=== PATIENT | female | born 1945 | race Hispanic/Latino ===

== ENCOUNTER → 2018-03-29 | Day surgery (SDC) | payer BC, MEDICARE ==
[2018-03-28 10:58] LABS: BASOPHILS # (AUTO) 0.1 (0.0-0.1); BASOPHILS % 0.8 % (0.0-1.0); EOSINOPHILS # (AUTO) 0.2 (0.0-0.4); EOSINOPHILS % 2.9 % (0.0-6.0); HEMATOCRIT 37.4 % (34.2-44.1); HEMOGLOBIN 12.7 g/dL (12.0-16.0); LYMPHOCYTES % 30.6 % (18.0-39.1); MEAN CORPUSCULAR HEMOGLOBIN 28.9 pg (28-32); MEAN CORPUSCULAR VOLUME 85.2 fL (81-99); MONOCYTES # (AUTO) 0.6 (0.2-0.8); NEUTROPHILS # (AUTO) 3.7 (2.1-6.9); NEUTROPHILS % 56.5 % (38.7-80.0); PLATELET COUNT 265 x10e3/uL (140-360); RED BLOOD COUNT 4.39 x10e6/uL (3.6-5.1); RED CELL DISTRIBUTION WIDTH 12.3 % (11.7-14.4)
[~2018-03-29] MED LIST: ASPIRIN81 MG; CARVEDILOL12.5 MG PO; EPHEDRINE SULFATE INJ 50 MG/10 ML SYR ONE; FENTANYL CITRATE/PF 100MCG/2 ML INJ ONE; FUROSEMIDE40 MG PO; ISOSORBIDE MONO30 MG PO; MIDAZOLAM HCL 2 MG/2 ML VIAL ONE; NIFEDIPINE10 MG PO; PROPOFOL IV EMULSION 10 MG/ML 50 ML VIAL ONE; TORSEMIDE10 MG; VENTOLIN HFA18 GM
--- OUTSIDE RECORDS SUMMARY | 2018-03-29 06:16 | XMS REPORT | Clinical Summary ---
Author Author [facility] Organization [facility] Address Unknown Phone Unavailable Care Team Providers Care Compensation And Benefits Analyst Name Role Phone Otis Pederson PCP Unavailable Allergies Active Allergy Reactions Severity Noted Date Comments Penicillin Rash 11/22/2017 Current Medications Prescription Sig. Disp. Refills Start End Date Status Date carvedilol (COREG) 12.5 Take 12.5 mg by mouth 2 Active mg tablet times daily (with meals). ACETAMINOPHEN/DIPHENHYDRA Take by mouth at bedtime Active MINE (TYLENOL PM OR) nightly. pantoprazole (PROTONIX) Take 40 mg by mouth Active 40 mg delayed release daily. tablet furosemide (LASIX) 20 mg Take 20 mg by mouth 2 Active tablet times daily. BABY ASPIRIN OR Take by mouth daily. Active isosorbide mononitrate Take 30 mg by mouth Active (IMDUR) 30 mg extended daily. release tablet NIFEdipine (PROCARDIA XL) Take 60 mg by mouth Active 60 mg 24 hr extended daily. release tabletIndications: Essential hypertension, benign albuterol (PROAIR HFA) 90 Inhale 2 Puffs by mouth 4 1 Inhaler 0 Active mcg/actuation times daily as needed for 18 inhalerIndications: Wheezing or Shortness of Chronic bronchitis, Breath. unspecified chronic bronchitis type clotrimazole (LOTRIMIN) 1 Apply to affected area 2 30 g 0 01/13/20 Active % topical times daily. 18 creamIndications: Tinea manuum ALBUTEROL SULFATE (PROAIR Inhale by mouth 4 times 01/06/20 Discontin HFA IN) daily. 18 ued benzonatate (TESSALON Take 1 capsule by mouth 3 20 capsule 0 11/22/19 11/29/19 PERLES) 100 mg times daily as needed for 18 18 capsuleIndications: up to 7 days for Cough. Postviral syndrome atorvastatin (LIPITOR) 10 Take 1 tablet by mouth at 30 tablet 2 02/22/20 mg tabletIndications: bedtime nightly for 90 18 18 Hyperlipidemia, days. unspecified hyperlipidemia type Active Problems Problem Noted Date Diabetes mellitus Encounters Date Type Specialty Care Team Description 01/29/2018 Telephone [facility] Andrea Loaiza, Resident Results 01/12/2018 Office Visit [facility] Otis Pederson, Tinea manuum (Primary Dx); Need for pneumococcal vaccination 01/05/2018 Office Visit [facility] Lance Novoa MD Essential hypertension, Otis Pederson, benign (Primary Dx); Diverticulosis of intestine with bleeding, unspecified intestinal tract location; Chronic bronchitis, unspecified chronic bronchitis type; DARREN (obstructive sleep apnea); Colon cancer screening 12/27/2017 Office Visit [facility] Lance Novoa MD Acute gastrointestinal Otis Pederson Resident bleeding (Primary Dx); Need for Tdap vaccination; Screening for malignant neoplasm of breast 12/10/2017 Pharmacy Visit 11/23/2017 Telephone [facility] Otis Pederson, Results 11/22/2017 Office Visit [facility] Otis Pederson, Postviral syndrome (Primary Dx); Class 3 obesity with body mass index (BMI) of 40.0 to 44.9 in adult, unspecified obesity type, unspecified whether serious comorbidity present; Healthcare maintenance; Need for influenza vaccination after 03/28/2017 Immunizations Name Dates Previously Given Next Due Influenza, Injectable, 11/22/2017 Quadrivalent, Preservative Free PCV 13 (Pnuemococcal 01/12/2018 Conjugated 13 Valent) TDap (Tetanus Toxoid, 12/27/2017 Reduced Diphtheria Toxoid And Acellular Pertussis, Absorbed) Family History Medical History Relation Name Comments Brain cancer Brother Diabetes Brother Hypertension Brother Prostate cancer Father Hypertension Mother Kidney disease Mother Kidney cancer Sister Relation Name Status Comments Brother Father Mother Sister Social History Tobacco Use Types Packs/Day Years Used Date Current Every Day Smoker 0.5 25 Smokeless Tobacco: Never Used Alcohol Use Drinks/Week oz/Week Comments No Sex Assigned at Date Recorded Not on file Last Filed Vital Signs Vital Sign Reading Time Taken Blood Pressure 168/70 01/12/2018 8:22 AM CDT Pulse 60 01/12/2018 8:07 AM CDT Temperature 37 C (98.6 F) 01/12/2018 8:07 AM CDT Respiratory Rate 18 01/12/2018 8:07 AM CDT Oxygen Saturation 97% 01/05/2018 3:12 PM CDT Inhaled Oxygen - - Concentration Weight 91.4 kg (201 lb 9.6 oz) 01/12/2018 8:07 AM CDT Height 148.6 cm (4' 10.5") 01/12/2018 8:07 AM CDT Body Mass Index 41.42 01/12/2018 8:07 AM CDT Plan of Treatment Health Maintenance Due Date Last Done Comments DM MICROALBUMIN URINE 1963 SCRN (YEARLY) DM RETINAL EXAM (YEARLY) 1963 COLORECTAL CANCER SCRN 1994 ANNUAL (FIT/FOBT) AGE 50 TO 75 IMM PNEUMOCOCCAL AGE 65 2009 AND UP DM FOOT EXAM (YEARLY) 11/22/2018 11/22/2017 (Previously completed - External) DM HGBA1C (YEARLY) 11/22/2018 11/22/2017 (Previously completed - External) BREAST CANCER SCRN 01/27/2019 01/27/2018 (YEARLY) Results * MAMMOGRAM BILAT SCREEN DIGITAL (01/27/2018) Specimen Performing Laboratory [facility] * CARDIOVASCULAR RISK ASSESSMENT (11/22/2017 2:29 PM) Component Value Ref Range Interpretation NoteComment: Supplemental report is available. Specimen Performing Laboratory [facility] [address] [address] Narrative Performed at:[facility] [address] [place], [place] [id number] Deckhand Clam Dredge: Bhanu Mistry PhD, Phone:[phone] * HEMOGLOBIN A1C (11/22/2017 2:29 PM) Component Value Ref Range Hemoglobin A1c 5.6 4.8 - 5.6 % Comment: Pre-diabetes: 5.7 - 6.4 Diabetes: >6.4 Glycemic control for adults with diabetes: <7.0 Specimen Performing Laboratory Blood [facility] [address] [address] Narrative Performed at:[address] [place] [address], [id number] De[employer] Dredge: Mic Baugh MD, Phone:[phone] * LIPID PANEL (11/22/2017 2:29 PM) Component Value Ref Range Cholestrol, Total 209 (H) 100 - 199 mg/dL Triglyceride 385 (H) 0 - 149 mg/dL HDL 31 (L) >39 mg/dL VLDL Cholestrol Calc 77 (H) 5 - 40 mg/dL LDL Cholestrol Calc 101 (H) 0 - 99 mg/dL Specimen Performing Laboratory [facility] [address] [address] Narrative Performed at:[id number] [employer]: Mic Baugh MD, Phone:[phone] after 03/28/2017
--- OUTSIDE RECORDS SUMMARY | 2018-03-29 06:17 | XMS REPORT ---
Author Author [facility] Address Unknown Phone Unavailable Care Team Providers Care Painter Drum Name Role Phone Unavailable Unavailable Problems This patient has no known problems. Allergies, Adverse Reactions, Alerts This patient has no known allergies or adverse reactions. Medications This patient has no known medications. Encounters Start Date/Time End Date/Time Encounter Type Admission Type Attending [facility] Care Department Encounter ID 2018-03-07 00:00:00 2018-03-07 00:00:00 Outpatient [facility] [id number] 2018-01-23 12:01:53 2018-01-23 12:01:53 Outpatient [facility] [id number] 2018-01-12 08:02:48 2018-01-12 08:02:48 Outpatient [facility] [id number] 2018-01-05 14:59:22 2018-01-05 14:59:22 Outpatient [facility] [id number] 2018-01-05 00:00:00 2018-01-05 00:00:00 Outpatient [facility] [id number] 2017-12-27 13:48:48 2017-12-27 13:48:48 Outpatient [facility] [id number]
--- OUTSIDE RECORDS SUMMARY | 2018-03-29 06:17 | XMS REPORT | Clinical Summary ---
Author Author [facility] Organization [facility] Address Unknown Phone Unavailable Care Team Providers Care Stenotypist Name Role Phone Rupinder Mcmahan MD PCP Allergies Active Allergy Reactions Severity Noted Date Comments Amlodipine Shortness Of Breath High 01/14/2016 Atorvastatin Shortness Of Breath High 01/14/2016 Clonidine Other (See Comments) 01/14/2016 Unsure of reaction Penicillin Hives 12/28/2017 Sulfa (Sulfonamide Hives 01/14/2016 Antibiotics) Current Medications Prescription Sig. Disp. Refills Start End Date Status Date albuterol (PROAIR HFA) 90 Inhale 2 puff(s) every 4 Active mcg/actuation inhaler hours by inhalation route as needed. carvedilol (COREG) 12.5 Take 6.25 mg by mouth 2 Active MG tablet (two) times a day with meals. fluticasone-salmeterol Inhale 1 puff 2 (two) Active (ADVAIR) 250-50 mcg/dose times a day as needed. DISKUS hydrALAZINE (APRESOLINE) Take 25 mg by mouth Active 25 MG tablet daily. isosorbide mononitrate Take 30 mg by mouth Active (IMDUR) 30 MG 24 hr daily. tablet rosuvastatin (CRESTOR) 20 Take 20 mg by mouth Active MG tablet nightly. torsemide (DEMADEX) 20 MG Take 20 mg by mouth 2 Active tablet (two) times a day. diphenhydramine-acetamino Take 2 tablets by mouth Active phen (TYLENOL PM EXTRA nightly. STRENGTH) 25-500 mg tablet aspirin (ECOTRIN) 81 MG Take 81 mg by mouth Active enteric coated tablet daily. pantoprazole (PROTONIX) Take 40 mg by mouth Active 40 MG EC tablet daily. aspirin (ECOTRIN) 81 MG Take 1 tablet(s) every 12/29/19 Discontin enteric coated tablet day by oral route. 18 ued fluticasone-salmeterol Inhale 1 puff(s) twice a 12/29/19 Discontin (ADVAIR) 250-50 mcg/dose day by inhalation route. 18 ued DISKUS carvedilol (COREG) 12.5 TK 0.5 T PO BID 12/29/19 Discontin MG tablet 18 ued rosuvastatin (CRESTOR) 20 TK 1 T PO QD 12/29/19 Discontin MG tablet 18 ued hydrALAZINE (APRESOLINE) TAKE 1 TABLET BY MOUTH 12/29/19 Discontin 25 MG tablet ONCE DAILY 18 ued isosorbide mononitrate TK 1 T PO QD 12/29/19 Discontin (IMDUR) 30 MG 24 hr 18 ued tablet pantoprazole (PROTONIX) TK 1 T PO QD 12/29/19 Discontin 40 MG EC tablet 18 ued torsemide (DEMADEX) 20 MG TK 1 T PO BID 12/29/19 Discontin tablet 18 ued zolpidem (AMBIEN) 5 MG TAKE 1 TABLET BY MOUTH AT 12/29/19 Discontin tablet BEDTIME 18 ued sertraline (ZOLOFT) 50 MG TAKE ONE TABLET BY MOUTH 30 tablet 0 12/29/19 Discontin tabletIndications: ONCE DAILY 17 18 ued Depression carvedilol (COREG) 25 MG Take 1 tablet (25 mg 60 tablet 0 12/29/19 01/28/20 tabletIndications: total) by mouth 2 (two) 18 18 Hypertensive urgency times a day for 30 days. NIFEdipine XL (PROCARDIA Take 1 tablet (60 mg 30 tablet 0 12/29/19 01/28/20 XL) 60 MG 24 hr total) by mouth daily for 18 18 tabletIndications: 30 days. Malignant hypertension furosemide (LASIX) 20 mg Take 1 tablet (20 mg 60 tablet 0 12/29/19 12/30/19 Discontin tabletIndications: total) by mouth 2 (two) 18 18 ued Malignant hypertension times a day for 30 days. nystatin (MYCOSTATIN) Apply topically 2 (two) 15 g 0 12/29/19 100,000 unit/gram times a day for 30 days. 18 18 creamIndications: Hypertensive urgency torsemide (DEMADEX) 10 MG Take 1 tablet (10 mg 60 tablet 0 12/31/19 01/30/20 tablet total) by mouth 2 (two) 18 18 times a day for 30 days. Active Problems Problem Noted Date Malignant hypertension 12/27/2017 Hypertensive urgency 12/27/2017 Obstructive sleep apnea syndrome 04/16/2016 Abdominal pain 01/14/2016 Low kidney function 01/14/2016 Depression 01/14/2016 Dyspnea on exertion 01/14/2016 Flank pain 01/14/2016 Knee pain 01/14/2016 Skin lesion 01/14/2016 Contact dermatitis 07/23/2013 Influenza vaccine needed 07/23/2013 Atherosclerosis of renal artery 10/30/2012 Right upper quadrant pain 10/30/2012 Anemia 09/28/2012 Cellulitis 09/28/2012 Follow up 09/28/2012 Cough 07/14/2012 Insomnia 07/14/2012 Atrial fibrillation 06/27/2012 Preop testing 06/27/2012 Disorder of trunk 06/07/2012 Respiratory Finding 06/07/2012 Screening for malignant neoplasm of breast 06/07/2012 Multiple-resistant Staphylococcus aureus infection 10/24/2011 Encounters Date Type Specialty Care Team Description 01/03/2018 Telephone Internal Medicine Rae Bagley 12/27/2017 [facility] General Internal Medicine Carrington Fernando MD Malignant hypertension - Encounter Hector Demarco DO (Primary Dx); 12/29/2017 Hypertensive urgency; Acute renal failure superimposed on stage 3 chronic kidney disease, unspecified acute renal failure type; Rectal bleeding; Weakness generalized; Diverticulosis of both small and large intestine without bleeding 04/26/2017 Refill Internal Medicine Oleg Mcamhan MD Depression 04/18/2017 Refill Internal Medicine Oleg Mcmahan MD after 03/28/2017 Immunizations Name Dates Previously Given Next Due FLUZONE HIGH-DOSE PF 08/06/2015 Influenza Split 07/23/2013 Pneumococcal Conjugate 08/06/2015 13-Valent Pneumococcal 10/24/2010 Polysaccharide Tdap 10/24/2010 Family History Medical History Relation Name Comments Diabetes Brother Heart attack Brother Hypertension Brother Cancer Father Diverticulitis Mother Heart attack Mother Hypertension Mother Kidney disease Mother Cancer Sister Relation Name Status Comments Brother Father PROSTATE CANCER Mother Sister KIDNEY CANCER Social History Tobacco Use Types Packs/Day Years Used Date Current Every Day Smoker Cigarettes 0.1 30 Smokeless Tobacco: Never Used Tobacco Cessation: Counseling Given: No Comments: Previously 30 PPY Alcohol Use Drinks/Week oz/Week Comments No Sex Assigned at Date Recorded Not on file Last Filed Vital Signs Vital Sign Reading Time Taken Blood Pressure 174/72 12/29/2017 5:27 PM INFRASTRUCTURE ADMINISTRATOR Pulse 68 12/29/2017 5:28 PM INFRASTRUCTURE ADMINISTRATOR Temperature 35.6 C (96.1 F) 12/29/2017 5:27 PM INFRASTRUCTURE ADMINISTRATOR Respiratory Rate 18 12/29/2017 5:28 PM INFRASTRUCTURE ADMINISTRATOR Oxygen Saturation 99% 12/29/2017 5:27 PM INFRASTRUCTURE ADMINISTRATOR Inhaled Oxygen - - Concentration Weight 91.6 kg (202 lb) 12/29/2017 11:57 AM INFRASTRUCTURE ADMINISTRATOR Height 149.9 cm (4' 11") 12/29/2017 11:57 AM INFRASTRUCTURE ADMINISTRATOR Body Mass Index 40.8 12/29/2017 11:57 AM INFRASTRUCTURE ADMINISTRATOR Plan of Treatment Health Maintenance Due Date Last Done Comments BREAST CANCER SCREENING 1994 COLON CANCER SCREENING 1994 SHINGRIX VACCINE (#1) 1994 ZOSTER VACCINE 2004 INFLUENZA VACCINE 05/24/2018 11/22/2017, 08/06/2015, 07/23/2013 PNEUMOCOCCAL Completed 10/24/2010 POLYSACCHARIDE VACCINE AGE 65 AND OVER PNEUMOCOCCAL-13 Completed 08/06/2015 Procedures Procedure Name Priority Date/Time Associated Diagnosis Comments CV STRESS TEST NUCLEAR Routine 12/29/2017 Results for this CARDIO 1:25 PM INFRASTRUCTURE ADMINISTRATOR procedure are in the results section. ECHOCARDIOGRAM 2D Routine 12/28/2017 Results for this COMPLETE W MMODE SPECTRAL 11:45 AM INFRASTRUCTURE ADMINISTRATOR procedure are in the COLOR DOPPLER ([id number]) results section. OR CRITICAL CARE, E/M Routine 12/27/2017 Results for this 30-74 MINUTES 10:19 PM INFRASTRUCTURE ADMINISTRATOR procedure are in the results section. after 03/28/2017 Results * CV stress test (12/29/2017 1:25 PM) Component Value Ref Range Resting HR 62 Resting BP 128 Peak MET Achieved 1.0 Protocol Name REGADENO Time in Exercise Phase 00:01:00 Max Systolic BP 140 Max Diastolic BP 63 Max Heart Rate 73 Max Predicted Heart Rate 147 Target HR Formula (220 - Age)*100% Test Indication chest pain Arrhy During Ex ECG Interp Before EX ECG Interp During Ex Ex Summary Comment Overall HR Response to Exercise Overall BP Response To Exercise Reason for Termination Stress Test Impression -Waveform interpreted in report associated with image study. No interpretation is provided as part of this Stress ECG report.-Electronically Signed By Austen Sutherland MD ([id number]), medical editor Cordelia Whittington ([id number]) on 12/29/2017 2:41:21 PM Specimen Performing Laboratory [facility] [address] [place] [id number] * Myocardial perfusion (12/29/2017 1:25 PM) Specimen Performing Laboratory [facility] [address] [place] [address] Narrative Nuclear Cardiology and Cardiac CT [address] [place] [id number] Myocardial Perfusion Imaging Report Stress ECG tracings are available in [employer], [employer] and [employer] properties and services Web All ECG interpretations are included in this report Pat.Name:MORELIA DE LA CRUZ LPat.ID:[id number] St.Date: 12/29/2017Refer.MD:HECTOR DEMARCO DO Exam Time: 12:17:00 PM Study Type:Myocardial Perfusion Imaging Height:51inBSA: 1.67 m2 DOBAge:1945,72Y Sex: FEMALE BP:128/58HR: 62 bpm HCT: 33.1 % Nuclear Tech:Reji Sung [facility], [facility]/ JAVAD Alegre Pat. Stat.:Inpatient Room:[facility] Nuclear Event ID:[id number] Order ID:[id number] Reason for Study:Chest pain, unspecified* History / Clinical:Atrial fibrillation, Congestive heart failure, COPD, Family history CAD, Hyperlipidemia, Hypertension, Obesity, Renal insufficiency/failure, Asthma ROUTINE INHALERS Procedures:Stress only Race:White Risk Factors:Cardiovascular Disease, Hyperlipidemia, Hypertension, Smoker, Peripheral arterial disease, Obesity Clinical Symptoms:Regadenoson Physical Exam:S1, S2 Surgery: K 4.1 (12/29), Troponin negative X 3 (12/28, 12/27, 12/27), BUN/CR 27/1.8 Medications:Aspirin, Coreg, Lasix, Albuterol, Imdur, Procardia, Protonix, Lasix SUMMARY: SCINTIGRAPHIC RESULTS Perfusion Defect Size (% LV) 0 % Total 0 % Ischemia 0 % Scar Left Ventricular Perfusion Results There is normal tracer distribution throughout the myocardium during stress. Gated SPECT Results The post-stress left ventricular ejection fraction is 77 % with normal regional wall motion and left ventricular thickening.Left ventricular end-diastolic volume is 94 ml; end-systolic volume is22 ml. The left ventricle is of normal size at stress.The right ventricle is of normal size with normal wall motion. Conclusion Normal regadenoson Tc-99m tetrofosmin myocardial perfusion study. The left ventricular ejection fraction is normal. Comments Patients with a normal stress myocardial perfusion study have a low (< 1%) annual risk of cardiac or nonfatal myocardial infarction. Study Quality/Artifacts The study quality is good. Comparison to Previous Study The previous study dated 04-15-2012 was also normal with a left ventricular ejection fraction of 73%. STRESS: Baseline Vital Signs:Intervention: Regadenoson 0.4mg /5ml IV over 10 seconds followed by radiotracer injection and 5ml saline flush ECG: Normal Sinus Rhythm HR:62 BP:128/58 Stress Test Results: Target HR: 125 Symptoms and Complications: Arrhythmias: None Terminated: As per Regadenoson protocol Symptoms:Headache Complications: None Conclusions: Normal heart rate response to pharmacological stress, Normal blood pressure response to pharmacological stress Stress ECG Interp: No ischemic ST segment change occurred with stress. Signed 12/29/2017 03:34 PM Austen Sutherland MD Procedure Note Interface, Radiology Results In - 12/29/2017 3:34 PM [facility] Nuclear Cardiology and Cardiac CT [address] [place] [address] Myocardial Perfusion Imaging Report Stress ECG tracings are available in [employer], [employer] and [employer] All ECG interpretations are included in this report Pat.Name: MORELIA DE LA CRUZ Lucio Pat.ID: [id number] St.Date: 12/29/2017 Refer.MD: HECTOR DEMARCO DO Exam Time: 12:17:00 PM Study Type:Myocardial Perfusion Imaging Height: 51in BSA: 1.67 m2 Age: 2 1945,72Y Sex: FEMALE BP: 128/58 HR: 62 bpm HCT: 33.1 % Nuclear Tech:JAVAD Bonilla, [facility]/ JAVAD Alegre Pat. Stat.:Inpatient Room: [facility] Nuclear Event ID:[id number] Order ID: [id number] Reason for Study:Chest pain, unspecified* History / Clinical:Atrial fibrillation, Congestive heart failure, COPD, Family history CAD, Hyperlipidemia, Hypertension, Obesity, Renal insufficiency/failure, Asthma ROUTINE INHALERS Procedures:Stress only Race: White Risk Factors:Cardiovascular Disease, Hyperlipidemia, Hypertension, Smoker, Peripheral arterial disease, Obesity Clinical Symptoms:Regadenoson Physical Exam:S1, S2 Surgery: K 4.1 (12/29), Troponin negative X 3 (12/28, 12/27, 12/27), BUN/CR 27/1.8 Medications:Aspirin, Coreg, Lasix, Albuterol, Imdur, Procardia, Protonix, Lasix SUMMARY: SCINTIGRAPHIC RESULTS Perfusion Defect Size (% LV) 0 % Total 0 % Ischemia 0 % Scar Left Ventricular Perfusion Results There is normal tracer distribution throughout the myocardium during stress. Gated SPECT Results The post-stress left ventricular ejection fraction is 77 % with normal regional wall motion and left ventricular thickening. Left ventricular end-diastolic volume is 94 ml; end-systolic volume is 22 ml. The left ventricle is of normal size at stress. The right ventricle is of normal size with normal wall motion. Conclusion Normal regadenoson Tc-99m tetrofosmin myocardial perfusion study. The left ventricular ejection fraction is normal. Comments Patients with a normal stress myocardial perfusion study have a low (< 1%) annual risk of cardiac or nonfatal myocardial infarction. Study Quality/Artifacts The study quality is good. Comparison to Previous Study The previous study dated 04-15-2012 was also normal with a left ventricular ejection fraction of 73%. STRESS: Baseline Vital Signs: Intervention: Regadenoson 0.4mg/5ml IV over 10 seconds followed by radiotracer injection and 5ml saline flush ECG: Normal Sinus Rhythm HR: 62 BP: 128/58 Stress Test Results: Target HR: 125 Symptoms and Complications: Arrhythmias: None Terminated: As per Regadenoson protocol Symptoms: Headache Complications: None Conclusions: Normal heart rate response to pharmacological stress, Normal blood pressure response to pharmacological stress Stress ECG Interp: No ischemic ST segment change occurred with stress. Signed 12/29/2017 03:34 PM Austen Sutherland MD * CBC with platelet and differential (12/29/2017 4:30 AM) Only the most recent of 3 results within the time period is included. Component Value Ref Range WBC 6.11 4.50 - 11.00 k/uL RBC 3.82 (L) 4.20 - 5.50 m/uL HGB 10.9 (L) 12.0 - 16.0 g/dL HCT 33.1 (L) 37.0 - 47.0 % MCV 86.6 82.0 - 100.0 fL MCH 28.5 27.0 - 34.0 pg MCHC 32.9 31.0 - 37.0 g/dL RDW - SD 37.5 37.0 - 55.0 fL MPV 11.3 8.8 - 13.2 fL Platelet count 202 150 - 400 k/uL Nucleated RBC 0.00 /100 WBC Neutrophils 50.9 39.0 - 69.0 % Lymphocytes 34.7 25.0 - 45.0 % Monocytes 9.8 0.0 - 10.0 % Eosinophils 3.9 0.0 - 5.0 % Basophils 0.5 0.0 - 1.0 % Immature granulocytes 0.2Comment: "Immature granulocytes" 0.0 - 1.0 % (promyelocytes, myelocytes, metamyelocytes) Specimen Performing Laboratory Blood [facility] DEPARTMENT OF PATHOLOGY AND GENOMIC MEDICINE [address] [place] [address] * Estimated GFR (12/29/2017 4:00 AM) Only the most recent of 3 results within the time period is included. Component Value Ref Range GFR Non Af Amer 28 (A) mL/min/1.73 m2 GFR Af Amer 33 (A) mL/min/1.73 m2 Comment: Chronic kidney disease: <60 mL/min/1.73m2 Kidney failure: <15 mL/min/1.73m2 The estimated GFR is calculated from the IDMS-traceable Modification of Diet in Renal Disease Equation. The accuracy of the calculation is poor when the creatinine is normal. Calculated values >90 mL/min/1.73m2 are not reported. This equation has not been validated in children (<18 years), women, the elderly (>70 years), or ethnic groups other than Caucasians and Americans. Specimen Performing Laboratory Plasma specimen [facility] DEPARTMENT OF PATHOLOGY AND [facility] MEDICINE [address] [place], [place] [id number] * Basic metabolic panel (12/29/2017 4:00 AM) Only the most recent of 2 results within the time period is included. Component Value Ref Range Sodium 138 135 - 148 mEq/L Potassium 4.1 3.5 - 5.0 mEq/L Chloride 101 98 - 112 mEq/L CO2 24 24 - 31 mEq/L Anion gap 13 7 - 15 mEq/L Comment: Starting from January , anion gap calculation no longer incorporates potassium. Please note the change. BUN 27 (H) 8 - 23 mg/dL Creatinine 1.8 (H) 0.5 - 0.9 mg/dL Glucose 99 65 - 99 mg/dL Calcium 9.5 8.8 - 10.2 mg/dL Specimen Performing Laboratory Plasma specimen [facility] DEPARTMENT OF PATHOLOGY AND [facility] MEDIC[facility] [address] [place] [id number] * US Renal Doppler (12/28/2017 6:05 PM) Specimen [facility] [address] [place] [address] Narrative EXAMINATION:US RENAL DOPPLER CLINICAL HISTORY:Uncontrolled Hypertension TECHNIQUE: Examination includes a full duplex Doppler scan of the renal vessels (real-time B mode grayscale, Doppler spectral analysis, and Doppler color flow imaging). COMPARISON:None. Impression: 1. Right kidney is small with decrease in cortical thickness and diffuse increase in cortical echogenicity. Cortical thickness and echogenicity on the left is more normal. 2.Diffuse decrease in the percentage of diastolic flow on the right ( resistive indices on the right range from 0.79-0.81) suggesting small vessel disease. Resistive indices on the left are normal (0.69-0.74). 3.There is also relative decrease in systolic acceleration on the right as compared to the left. 4.Renal vein flow is noted on each side. [id number] Procedure Note Interface, Radiology Results Incoming - 12/28/2017 7:54 PM INFRASTRUCTURE ADMINISTRATOR EXAMINATION: US RENAL DOPPLER CLINICAL HISTORY: Uncontrolled Hypertension TECHNIQUE: Examination includes a full duplex Doppler scan of the renal vessels (real-time B mode grayscale, Doppler spectral analysis, and Doppler color flow imaging). COMPARISON: None. Impression: 1. Right kidney is small with decrease in cortical thickness and diffuse increase in cortical echogenicity. Cortical thickness and echogenicity on the left is more normal. 2. Diffuse decrease in the percentage of diastolic flow on the right ( resistive indices on the right range from 0.79-0.81) suggesting small vessel disease. Resistive indices on the left are normal (0.69-0.74). 3. There is also relative decrease in systolic acceleration on the right as compared to the left. 4. Renal vein flow is noted on each side. [id number] * Echocardiogram complete w contrast and 3D if needed (12/28/2017 11:45 AM) Specimen Performing Laboratory [facility] [address] [place] [address] Narrative Echocardiography Report [address] [place] [address] Pat.Name:MORELIA DE LA CRUZ [facility].ID:[id number] .Date: 12/28/2017Refer.MD:HECTOR DEMARCO MD Exam Time: 10:44:00 AM Study Type:Routine Echo Height:59inWeight:197lb BSA: 1.83 m2 DOBAge:1945,72Y Sex: FEMALEBP: 140/65 HR:60 bpmSonogrphr: PAULINE Newby Pat. Stat.:Inpatient Room:ED 4 Study Status:Final Echo Event ID:[id number] Order ID:[id number] Reason for Study:Heart Failure History / Clinical:COPD, Chest Pain, Dizziness, Edema, Hyperlipidemia, Hypertension, Shortness of Breath Procedures:2D Echo, Colorflow Doppler, Portable Race:C SUMMARY: Severe mitral annular calcification. Unable to assess diastolic function. FINDINGS: LV: LV size is normal. LV EF is hyperdynamic. Overall wall motionis hyperdynamic. Estimated EF is >70%. RV: RV size is normal. RV systolic function is normal. LA: LA volume is severely enlarged. RA: RA size is normal. AO: Aortic root diameter is normal. YURIDIA: No pericardial effusion. AV: No structural AV abnormalities noted. Mild to moderate aorticregurgitation. MV: Moderate calcification of mitral leaflets. Severe mitral annularcalcification. PV: No structural PV abnormalities noted. TV: No structural TV abnormalities noted. A trace of tricuspid regurgitation Arellano: LV filling pressure is normal. Unable to assess diastolic function. Other:Estimated PA systolic pressure is 28 mmHg, assuming a mean RAPof 5 mmHg. MEASUREMENTS: 2D Parasternal [place] LVOT 1.9 cmLA Ds 4.8 cm LVIDd4.7 cmIndex 2.5 cm/m Ao An2 cm LVIDs2.5 cmAo Rtd 2.6 cm Index1.4 cm/m LV%fs 46 % LV Mass 141.2 g(87-129) IVSd 0.7 cmLVM Index 77.1 g/m2 LVPWd1.1 cmRWT 0.5 LA Sng Plane LA Area 24.7 cm2(8.8-23.4) LA Vol 91 ml Index49.7 ml/m LA LngAx 5.6 cm Signed 12/28/2017 04:21 PM Marc Gibbs M.D. Procedure Note Interface, Radiology Results In - 12/28/2017 4:21 PM INFRASTRUCTURE ADMINISTRATOR Echocardiography Report [address] [place] [address] Pat.Name: MORELIA DE LA CRUZ Pat.ID: [id number] .Date: 12/28/2017 Refer.MD: HECTOR DEMARCO MD Exam Time: 10:44:00 AM Study Type:Routine Echo Height: 59in Weight: 197lb BSA: 1.83 m2 Age: 2 1945,72Y Sex: FEMALE BP: 140/65 HR: 60 bpm Sonogrphr: PAULINE Newby Pat. Stat.:Inpatient Room: ED 4 Study Status:Final Echo Event ID:[id number] Order ID: [id number] Reason for Study:Heart Failure History / Clinical:COPD, Chest Pain, Dizziness, Edema, Hyperlipidemia, Hypertension, Shortness of Breath Procedures:2D Echo, Colorflow Doppler, Portable Race: C SUMMARY: Severe mitral annular calcification. Unable to assess diastolic function. FINDINGS: LV: LV size is normal. LV EF is hyperdynamic. Overall wall motion is hyperdynamic. Estimated EF is >70%. RV: RV size is normal. RV systolic function is normal. LA: LA volume is severely enlarged. RA: RA size is normal. AO: Aortic root diameter is normal. YURIDIA: No pericardial effusion. AV: No structural AV abnormalities noted. Mild to moderate aortic regurgitation. MV: Moderate calcification of mitral leaflets. Severe mitral annular calcification. PV: No structural PV abnormalities noted. TV: No structural TV abnormalities noted. A trace of tricuspid regurgitation Arellano: LV filling pressure is normal. Unable to assess diastolic function. Other: Estimated PA systolic pressure is 28 mmHg, assuming a mean RAP of 5 mmHg. MEASUREMENTS: 2D Parasternal [place] LVOT 1.9 cm LA Ds 4.8 cm LVIDd 4.7 cm Index 2.5 cm/m Ao An 2 cm LVIDs 2.5 cm Ao Rtd 2.6 cm Index 1.4 cm/m LV%fs 46 % LV Mass 141.2 g (87-129) IVSd 0.7 cm LVM Index 77.1 g/m2 LVPWd 1.1 cm RWT 0.5 LA Sng Plane LA Area 24.7 cm2 (8.8-23.4) LA Vol 91 ml Index 49.7 ml/m LA LngAx 5.6 cm Signed 12/28/2017 04:21 PM Marc Gibbs M.D. * Urinalysis screen and microscopy, with reflex to culture (12/28/2017 6:25 AM) Component Value Ref Range Specimen site Clean catch Color, UA Yellow Appearance, UA Hazy Specific gravity, UA 1.015 1.001 - 1.035 pH, UA 6.0 5.0 - 8.5 Protein, UA Negative Negative Glucose, UA Negative Negative Ketones, UA Negative Negative Bilirubin, UA Negative Negative Blood, UA Negative Negative Nitrite, UA Negative Negative Urobilinogen, UA <2.0 <2.0 Leukocyte esterase, UA Large (A) Negative Epithelial cells, UA 1 /HPF Round epithelial cells, <1 0 - 1 /HPF UA WBC, UA 59 (H) 0 - 4 /HPF RBC, UA 2 0 - 2 /HPF Bacteria, UA Few None seen Yeast, UA None seen Yeast with pseudohyphae, None seen UA Specimen Performing Laboratory Urine [facility] DEPARTMENT OF PATHOLOGY AND GENOMIC MEDICINE [address] [place] [id number] * Total iron binding capacity (12/28/2017 6:25 AM) Component Value Ref Range Iron level 53 37 - 145 ug/dL Iron binding capacity 251 200 - 400 ug/dL % Saturation 21.1 15.0 - 38.0 % Specimen Performing Laboratory Plasma specimen [facility] DEPARTMENT OF PATHOLOGY AND [facility] MEDICINE [address] [place] [address] * Troponin (12/28/2017 6:25 AM) Only the most recent of 3 results within the time period is included. Component Value Ref Range Troponin <0.30 0.00 - 0.30 ng/mL Comment: 0.30 - 1.49 ng/ml May indicate increased risk of acute coronary syndrome. >=1.5 ng/ml Consistent with acute myocardial infarction. The diagnostic value of a single normal or non-diagnostic result is questionable. Serial samples at 2-6 hour intervals are required to rule out acute myocardial injury. Specimen Performing Laboratory Plasma specimen [facility] [place] [address] * Gram stain (12/28/2017 6:25 AM) Component Value Ref Range Gram stain result Rare WBC's Many Gram negative rods Moderate Gram positive rods Comment: Specimen Information Specimen Source: Urine Specimen Site: Clean catch Specimen Performing Laboratory Urine [facility] DEPARTMENT [place] [address] * Urine culture (12/28/2017 6:25 AM) Component Value Ref Range Urine culture isolate Escherichia coli >10-5 cfu/ml (A) Comment: Specimen Information Specimen Source: Urine Specimen Site: Clean catch Urine culture isolate Mixed Gram positive esperanza 10-5 cfu/ml (A) Specimen Performing Laboratory Urine [facility] DEPARTMENT OF PATHOLOGY AND [facility] [address] [place] [address] Organism Antibiotic Method Susceptibility Escherichia coli Ampicillin GOMEZ >16 mcg/mL: Resistant Escherichia coli Amoxicillin/Clavulanate GOMEZ 16/8 mcg/mL: Resistant Escherichia coli Amikacin GOMEZ <=4 mcg/mL: Susceptible Escherichia coli Aztreonam GOMEZ <=1 mcg/mL: Susceptible Escherichia coli Ceftazidime GOMEZ <=0.5 mcg/mL: Susceptible Escherichia coli Ciprofloxacin GOMEZ >2 mcg/mL: Resistant Escherichia coli Ceftriaxone GOMEZ <=0.5 mcg/mL: Susceptible Escherichia coli Cefuroxime Sodium GOMEZ >16 mcg/mL: Resistant Escherichia coli Cefazolin GOMEZ >32 mcg/mL: Resistant Escherichia coli Cefipime GOMEZ <=0.5 mcg/mL: Susceptible Escherichia coli Nitrofurantoin GOMEZ <=16 mcg/mL: Susceptible Escherichia coli Cefoxitin GOMEZ >16 mcg/mL: Resistant Escherichia coli Gentamicin GOMEZ <=1 mcg/mL: Susceptible Escherichia coli Imipenem GOMEZ <=0.25 mcg/mL: Susceptible Escherichia coli Levofloxacin GOMEZ >4 mcg/mL: Resistant Escherichia coli Meropenem GOMEZ <=0.125 mcg/mL: Susceptible Escherichia coli Tobramycin GOMEZ 1 mcg/mL: Susceptible Escherichia coli Ampicillin/Sulbactam GOMEZ >16/8 mcg/mL: Resistant Escherichia coli Trimethoprim/Sulfamethoxa GOMEZ <=0.5/9.5 mcg/mL: zole Susceptible Escherichia coli Tetracycline GOMEZ 8 mcg/mL: Resistant Escherichia coli Piperacillin/Tazobactam GOMEZ 64/4 mcg/mL: Resistant Escherichia coli Ertapenem GOMEZ <=0.125 mcg/mL: Susceptible Escherichia coli Tigecycline GOMEZ 2 mcg/mL: Susceptible * Thyroid stimulating hormone (12/28/2017 6:25 AM) Component Value Ref Range TSH 2.36 0.27 - 4.20 uIU/mL Specimen Performing Laboratory Plasma specimen [facility] DEPARTMENT OF PATHOLOGY AND [facility] [address] [place] [address] * Phosphorus level (12/28/2017 6:25 AM) Component Value Ref Range Phosphorus 3.5 2.4 - 4.5 mg/dL Specimen Performing Laboratory Plasma specimen [facility] DEPARTMENT OF PATHOLOGY AND [facility] [address] [place] [address] * Magnesium level (12/28/2017 6:25 AM) Component Value Ref Range Magnesium 2.4 1.6 - 2.4 mg/dL Specimen Performing Laboratory Plasma specimen [facility] DEPARTMENT OF PATHOLOGY AND GENOMIC MEDICINE [address] [place] [address] * Ferritin level (12/28/2017 6:25 AM) Component Value Ref Range Ferritin level 68 13 - 150 ng/mL Specimen Performing Laboratory Plasma specimen [facility] DEPARTMENT OF PATHOLOGY AND GENOMIC MEDICINE [address] [place] [address] * CT Head Wo Contrast (12/28/2017 12:29 AM) Specimen [place] [address] Narrative EXAM: CT HEAD WO CONTRAST CLINICAL HISTORY: Hypertensive urgency TECHNIQUE: Noncontrast enhanced images of the brain were obtained from the skull base to the vertex. Both soft tissue and bone reconstruction algorithms were performed. CT scans are performed using radiation dose reduction techniques (iterative reconstruction and/or automated exposure control). Technical factors are evaluated and adjusted to ensure appropriate moderation of exposure. Automated dose management technology is applied to adjust radiation exposure while achieving a diagnostic quality image. COMPARISON:09/18/2012. FINDINGS: The shaffer-white matter differentiation is preserved and without evidence of acute territorial infarction. Ventricles are normal in size and configuration. Partially empty sella again noted. There is no evidence for acute intracranial hemorrhage, mass, mass effect, hydrocephalus, or extra-axial fluid collection. Orbits are unremarkable.Paranasal sinuses are clear.Mastoid air cells are normally pneumatized.Osseous structures are intact. Scattered vascular calcifications are noted, most prominent within the bilateral cavernous ICAs. IMPRESSION: No CT evidence for acute intracranial abnormality. [facility]-[id number] Procedure Note Interface, Radiology Results Incoming - 12/28/2017 12:36 AM INFRASTRUCTURE ADMINISTRATOR EXAM: CT HEAD WO CONTRAST CLINICAL HISTORY: Hypertensive urgency TECHNIQUE: Noncontrast enhanced images of the brain were obtained from the skull base to the vertex. Both soft tissue and bone reconstruction algorithms were performed. CT scans are performed using radiation dose reduction techniques (iterative reconstruction and/or automated exposure control). Technical factors are evaluated and adjusted to ensure appropriate moderation of exposure. Automated dose management technology is applied to adjust radiation exposure while achieving a diagnostic quality image. COMPARISON: 09/18/2012. FINDINGS: The shaffer-white matter differentiation is preserved and without evidence of acute territorial infarction. Ventricles are normal in size and configuration. Partially empty sella again noted. There is no evidence for acute intracranial hemorrhage, mass, mass effect, hydrocephalus, or extra-axial fluid collection. Orbits are unremarkable. Paranasal sinuses are clear. Mastoid air cells are normally pneumatized. Osseous structures are intact. Scattered vascular calcifications are noted, most prominent within the bilateral cavernous ICAs. IMPRESSION: No CT evidence for acute intracranial abnormality. [facility]-[id number] * XR Chest 1 Vw Portable (12/27/2017 11:18 PM) Specimen Performing Laboratory [facility] [address] [place] [address] Narrative EXAMINATION:XR CHEST 1 VW PORTABLE CLINICAL HISTORY: SHORTNESS OF BREATH COMPARISON:10/11/2013 IMPRESSION: The heart is at the upper limits of normal/minimally enlarged. Calcifications are identified within the aortic arch. Pulmonary vasculature is minimally prominent. No focal or confluent airspace consolidation is seen on the single AP view to suggest acute pneumonia. No sizable pleural effusion. No pneumothorax identified. No acute osseous abnormalities are visualized. [facility]-[id number] Procedure Note Hm Interface, Radiology Results Incoming - 12/27/2017 11:24 PM INFRASTRUCTURE ADMINISTRATOR EXAMINATION: XR CHEST 1 VW PORTABLE CLINICAL HISTORY: SHORTNESS OF BREATH COMPARISON: 10/11/2013 IMPRESSION: The heart is at the upper limits of normal/minimally enlarged. Calcifications are identified within the aortic arch. Pulmonary vasculature is minimally prominent. No focal or confluent airspace consolidation is seen on the single AP view to suggest acute pneumonia. No sizable pleural effusion. No pneumothorax identified. No acute osseous abnormalities are visualized. [facility]-[id number] * ECG ED Preliminary Interpretation - NOT AN ORDER (12/27/2017 10:19 PM) Narrative Carrington Fernando MD 12/28/20171:40 PM ECG ED Preliminary Interpretation - Not an Order Performed by: MANDY AZUL Authorized by: CARRINGTON FERNANDO ECG reviewed by ED Physician in the absence of a security flex officer: yes Previous ECG: Previous ECG:Compared to current Comparison ECG info:10/11/2013 16:04 Similarity:Changes noted Interpretation: Interpretation: normal Rate: ECG rate:70 bpm ECG rate assessment: normal Rhythm: Rhythm: sinus rhythm Ectopy: Ectopy: none QRS: QRS axis:Left QRS intervals:Normal Conduction: Conduction: normal ST segments: ST segments:Non-specific T waves: T waves: non-specific * CRITICAL CARE (12/27/2017 10:19 PM) Narrative Carrington Fernando MD 12/28/20171:40 PM Critical Care Performed by: MANDY AZUL Authorized by: CARRINGTON FERNANDO Critical care provider statement: Critical care time (minutes):35 Critical care time was exclusive of:Teaching time Critical care was necessary to treat or prevent imminent or life-threatening deterioration of the following conditions:Cardiac failure Critical care was time spent personally by me on the following activities:Ordering and performing treatments and interventions, ordering and review of radiographic studies, ordering and review of laboratory studies, re-evaluation of patient's condition and examination of patient Billy 'yes' if you are taking over critical care for this patient from another provider.: no * CT Abdomen Pelvis Wo Contrast (12/27/2017 9:31 PM) Specimen Performing Laboratory [facility] [address] [place] [address] Narrative EXAMINATION:CT ABDOMEN PELVIS WO CONTRAST CLINICAL HISTORY:ABDOMINAL PAIN, LLQr o Diverticulitis TECHNIQUE: Multiple axial images of the abdomen and pelvis were obtained without intravenous administration of iodinated contrast. Sagittal and coronal computerized reformatted images were also obtained. The lack of intravenous contrast reduces the sensitivity of detecting solid organ disease. CT imaging was performed with iterative reconstruction technique and/or automated exposure control to reduce radiation dose. COMPARISON:None. IMPRESSION: Mild basilar atelectasis/scarring. Mitral valve calcifications and aortic valve calcifications are seen. Patient is status post cholecystectomy. Liver, spleen, pancreas, adrenal glands are normal. Simple cysts are seen of the atrophic right kidney. Left kidney is normal. No hydronephrosis or hydroureter. The bladder is normal. No free intraperitoneal fluid or air. Atherosclerotic vascular calcifications are seen. Diverticulosis is seen without diverticulitis. The appendix is normal. No gastrointestinal tract obstruction. Small hiatal hernia. No acute osseous abnormalities. Postoperative appearance of the lower lumbar spine. Conclusion: No emergent findings. Diverticulosis without diverticulitis. [facility]-[id number] Procedure Note Interface, Radiology Results Incoming - 12/27/2017 9:51 PM INFRASTRUCTURE ADMINISTRATOR EXAMINATION: CT ABDOMEN PELVIS WO CONTRAST CLINICAL HISTORY: ABDOMINAL PAIN, LLQ r o Diverticulitis TECHNIQUE: Multiple axial images of the abdomen and pelvis were obtained without intravenous administration of iodinated contrast. Sagittal and coronal computerized reformatted images were also obtained. The lack of intravenous contrast reduces the sensitivity of detecting solid organ disease. CT imaging was performed with iterative reconstruction technique and/or automated exposure control to reduce radiation dose. COMPARISON: None. IMPRESSION: Mild basilar atelectasis/scarring. Mitral valve calcifications and aortic valve calcifications are seen. Patient is status post cholecystectomy. Liver, spleen, pancreas, adrenal glands are normal. Simple cysts are seen of the atrophic right kidney. Left kidney is normal. No hydronephrosis or hydroureter. The bladder is normal. No free intraperitoneal fluid or air. Atherosclerotic vascular calcifications are seen. Diverticulosis is seen without diverticulitis. The appendix is normal. No gastrointestinal tract obstruction. Small hiatal hernia. No acute osseous abnormalities. Postoperative appearance of the lower lumbar spine. Conclusion: No emergent findings. Diverticulosis without diverticulitis. [facility]-[id number] * Partial thromboplastin time, activated (12/27/2017 7:20 PM) Component Value Ref Range PTT 31.5 23.0 - 36.0 sec Comment: PTT therapeutic range for unfractionated heparin is 61.0-112.0 seconds which corresponds to Anti-Xa 0.3-0.7 U/ml. Specimen Performing Laboratory Blood [facility] DEPARTMENT OF PATHOLOGY AND GENOMIC MEDICINE [address] [place], [place] [id number] * Prothrombin time with INR (12/27/2017 7:20 PM) Component Value Ref Range Prothrombin time 13.9 12.0 - 15.0 sec INR 1.1 Comment: The International Normalized Ratio (INR) is a therapeutic monitoring tool for patients who are stable on oral anticoagulant therapy. An INR of 2.0-3.0 is suggested for deep vein thrombosis/pulmonary embolism. Specimen Performing Laboratory Blood [facility] DEPARTMENT OF PATHOLOGY AND [facility] [address] [place] [address] * Type and screen (12/27/2017 7:20 PM) Component Value Ref Range ABO grouping O Rh type POS Antibody screen (gel) NEG Specimen Performing Laboratory Blood [facility] DEPARTMENT OF PATHOLOGY AND [facility] [address] [place] [address] * B natriuretic peptide (12/27/2017 7:20 PM) Component Value Ref Range BNP 133 (H) 0 - 100 pg/mL Specimen Performing Laboratory [facility] DEPARTMENT OF PATHOLOGY AND [facility] [address] [place] [address] Narrative Add on by Bettina Bocanegra * Comprehensive metabolic panel (12/27/2017 7:20 PM) Component Value Ref Range Sodium 141 135 - 148 mEq/L Potassium 4.3 3.5 - 5.0 mEq/L Chloride 103 98 - 112 mEq/L CO2 28 24 - 31 mEq/L Anion gap 10 7 - 15 mEq/L Comment: Starting from January , anion gap calculation no longer incorporates potassium. Please note the change. BUN 30 (H) 8 - 23 mg/dL Creatinine 2.1 (H) 0.5 - 0.9 mg/dL Glucose 106 (H) 65 - 99 mg/dL Calcium 9.8 8.8 - 10.2 mg/dL Protein 8.0 6.3 - 8.3 g/dL Comment: [place] 4.6-7.0 g/dL 1 week 4.4-7.6 g/dL 7 months-1year 5.1-7.3 g/dL 1-2 years 5.6-7.5 g/dL >3 years 6.0-8.0 g/dL 18-150 6.3-8.3 g/dL Albumin 3.4 (L) 3.5 - 5.0 g/dL A/G ratio 0.7 0.7 - 3.8 Alkaline phosphatase 102 35 - 104 U/L AST 19 10 - 35 U/L ALT 10 5 - 50 U/L Total bilirubin 0.4 0.0 - 1.2 mg/dL Specimen Performing Laboratory Plasma specimen [facility] DEPARTMENT OF PATHOLOGY AND GENOMIC MEDICINE [address] [place] [address] * ECG 12 lead (12/27/2017 5:17 PM) Component Value Ref Range Ventricular rate 70 Atrial rate 70 OR interval 170 QRSD interval 86 QT interval 396 QTC interval 427 P axis 1 54 QRS axis 1 3 T wave axis 58 EKG impression Normal sinus rhythm-Normal ECG-In automated comparison with ECG of 11-OCT-2013 16:04,-Nonspecific T wave abnormality has replaced inverted T waves in Lateral leads- Specimen Performing Laboratory [facility] [address] [place] [address] after 03/28/2017 Insurance Payer Benefit Subscriber ID Type Phone Address Plan / Group MEDICARE MEDICARE xxxxxxxxxx Medicare [place], [place] PART A AND B BCBS BCBS xxxxxxxxxxxx Indemnity PAR/TRAD PLAN
== END | disposition home or self-care (01) ==
LOC: OR 06:15
PROVIDERS: ATTEND Internal Medicine Gastroenterology
DX: K57.30 Diverticulosis of large intestine without perforation or abscess without bleeding (principal); K63.5 Polyp of colon; K62.1 Rectal polyp; K25.3 Acute gastric ulcer without hemorrhage or perforation; K26.3 Acute duodenal ulcer without hemorrhage or perforation; K29.50 Unspecified chronic gastritis without bleeding; K52.9 Noninfective gastroenteritis and colitis, unspecified; K29.80 Duodenitis without bleeding; K21.0 Gastro-esophageal reflux disease with esophagitis; K44.9 Diaphragmatic hernia without obstruction or gangrene; F41.8 Other specified anxiety disorders; K64.4 Residual hemorrhoidal skin tags; G47.33 Obstructive sleep apnea (adult) (pediatric); I25.10 Atherosclerotic heart disease of native coronary artery without angina pectoris; E78.5 Hyperlipidemia, unspecified; I11.0 Hypertensive heart disease with heart failure; I50.9 Heart failure, unspecified; J45.909 Unspecified asthma, uncomplicated; E66.9 Obesity, unspecified; Z01.810 Encounter for preprocedural cardiovascular examination; Z01.812 Encounter for preprocedural laboratory examination; Z88.2 Allergy status to sulfonamides; Z79.82 Long term (current) use of aspirin; Z68.39 Body mass index [BMI] 39.0-39.9, adult; Z87.891 Personal history of nicotine dependence
CPT/HCPCS: 36415; 43239; 45380; 45385; 85025; 88305; 88312; 93005; J2250